=== PATIENT | female | born 1995 | race Caucasian/White ===

== ENCOUNTER 2017-01-26 19:34 | Day surgery (SDC) | payer OTHER ==
[2017-01-26 20:00] VITALS: BMI 36.2
--- NOTE | 2017-01-27 00:27 | PRG ---
OB ER ENCOUNTER DATE OF SERVICE: 01/26/2017 PRIMARY OB: Ms. Chloé Barnes, Certified Nurse Scarf Gluer. CHIEF COMPLAINT: Decreased movement. HISTORY OF PRESENT ILLNESS: The patient is a 21-year-old female G1, P0 with an intrauterine pregnan cy at 38 weeks, who is presenting to Labor and Delivery today with complaints that her baby has not been moving as much as usual today. She does admit that upon arrival, the baby has been moving more . She denies any labor. She denies contractions, vaginal bleeding, leakage of fluid. She denies a ny recent illness, fever, fall, headache, chest pain, shortness of breath, any significant nausea, v omiting, diarrhea, or constipation, any hip problems or knee problems or muscle weakness. PAST MEDICAL HISTORY: Significant with ankylosing spondylitis. PAST SURGICAL HISTORY: Negative. SOCIAL HISTORY: Denies drug, alcohol, or tobacco use. ALLERGIES: LYRICA. MEDICATIONS: vitamins, folic acid which has been discontinued since November. OB LABS: RPR is nonreactive. HIV is nonreactive. Blood type is A positive, antibody screen is neg ative. HIV is nonreactive. Hepatitis B surface antigen is nonreactive. She is rubella immune. RP R is nonreactive. Her one hour Glucola is 89. She is GBS positive. Third trimester HIV is nonreac tive. Third trimester RPR is nonreactive. PHYSICAL EXAMINATION: VITAL SIGNS: Blood pressure is 133/72, heart rate of 65, respiratory rate of 18, temperature 98.5. GENERAL: The patient is alert and oriented, and cooperative and pleasant to interact with. HEENT: Head is normocephalic, atraumatic. LUNGS: Clear to auscultation bilaterally. HEART: Regular rate and rhythm. ABDOMEN: Soft, nontender and gravid. EXTREMITIES: Nontender, nonedematous. CERVICAL EXAM: Per nursing staff and is closed, thick and high. heart tracing performed for decreased movement over 1 hour and triggered by Dr. Lynne. Baseline is in the 140s with moderate long-term variability, positive accelerations, no decelerati ons. She has contractions on the monitor, not felt by her. ASSESSMENT AND PLAN: The patient is a 21-year-old G1, P0 female who has an intrauterine a t 38 weeks who presented with decreased movement. She has a reactive NST and category 1 bjorn ng. She is GBS positive. The patient has been given term labor precautions. She has an appointmen t with Ms. Chloé Barnes later this week.
== END 2017-01-26 21:00 | disposition home or self-care (01) ==
LOC: L&D/OP 19:34
PROVIDERS: ATTEND Advanced Practice Midwife
DX: O36.8130 Decreased fetal movements, third trimester, not applicable or unspecified (principal); O99.89 Other specified diseases and conditions complicating pregnancy, childbirth and the puerperium; M45.9 Ankylosing spondylitis of unspecified sites in spine; Z88.8 Allergy status to other drugs, medicaments and biological substances; Z79.899 Other long term (current) drug therapy; Z3A.38 38 weeks gestation of pregnancy

== ENCOUNTER 2017-02-03 16:57 | Day surgery (SDC) | payer OTHER ==
[2017-02-03 17:49] VITALS: BMI 37.3
[2017-02-03 18:31] LABS: #Eosinphils 0.1 thou/uL (0.0-0.7); #Lymphocytes 2.5 thou/uL (1.20-3.40); #Neutrophils 6.8 thou/uL (1.40-6.50); %Basophils 0.3 % (0.0-1.0); %Eosinophils 0.7 % (0.0-10.0); %Lymphocytes 24.3 % (28.0-48.0); %Monocytes 9.8 % (0.0-4.0); Hematocrit 34.2 % (36.0-47.0); Mean Platelet Volume 9.1 fL (7.4-10.4); Red Blood Cell (RBC) Count 3.86 mill/uL (4.00-5.20); White Blood Cell (WBC) Count 10.4 thou/uL (4.8-10.8)
[2017-02-03 18:56] LABS: ALT (SGPT) 8 U/L (8-55); AST (SGOT) 13 U/L (5-34); Alkaline Phosphatase 99 U/L (40-150); Anion Gap 13 mmol/L (10-20); BUN (Urea Nitrogen) 6 mg/dL (7.0-18.7); Bilirubin, Total 0.4 mg/dL (0.2-1.2); Calc. Creatinine Clearance 236 mL/min (70-130); Calcium 9.2 mg/dL (7.8-10.44); Carbon Dioxide 21 mmol/L (22-29); Chloride 109 mmol/L (98-107); Estimated GFR-MDRD Greater than 90; Globulin 3.1 g/dL (2.4-3.5); Protein, Total 6.6 g/dL (6.0-8.3)
--- NOTE | 2017-02-04 00:27 | PRG ---
DATE OF PROCEDURE: 02/03/2017 TIME OF SERVICE: 2030 hours. PRESENTING COMPLAINT: The patient referred over by nurse aviation safety officer for elevated blood pressure at 39 w eeks. HISTORY OF PRESENT ILLNESS: Ms. Kelley is a 21-year-old 1, para 0 at 39-1/2 weeks' gestation, who was noted at [facility] blood pressures of 146/84, 140/88. She denied headach e or blurred vision. She was sent over for further evaluation of blood pressures. She denies chroni c hypertension. She has had an uncomplicated . The onset of care at 15 weeks' gestation, b lood type A positive, antibody negative, Pap negative, rubella immune, VDRL nonreactive, hepatitis B, GC chlamydia negative, group B strep negative. PAST MEDICAL HISTORY: Ankylosing spondylitis. PAST SURGICAL HISTORY: None. ALLERGIES: Denies. MEDICATIONS: vitamins. SOCIAL HISTORY: Denies tobacco, alcohol, IV drug abuse. FAMILY HISTORY: Noncontributory. REVIEW OF SYSTEMS: Noncontributory. PHYSICAL EXAMINATION: VITAL SIGNS: Temperature 98.4, blood pressure 136/83 on presentation. The patient had one blood pre ssure upon initial presentation of 150/86; however, subsequent blood pressures over several hours of observation were 120s-130s over 70s-80s. HEENT: Within normal limits. LUNGS: Clear to auscultation bilaterally. HEART: Regular rate and rhythm. ABDOMEN: Soft and nontender. Fundal height 38 cm. FHTs 140s. PELVIC: Vulva without lesions. Vaginal exam deferred. The patient was reported to be fingertip in the office. EXTREMITIES: Trace edema. 1+ DTRs. LABORATORY STUDIES: Hematocrit is 34%, platelet count is 208, normal white count. Creatinine 0.61. ALT and AST within normal limits. Urine dip in the office was negative. Rgolwfo-bc-whpkcjujrs rati o was unmeasurable due to low protein in the hospital. IMPRESSION: Term unfavorable cervix. No evidence of preeclampsia. PLAN: The patient was given ER precautions. Discharge home to follow up with Chloé Barnes, nurse aviation safety officer, next week.
== END 2017-02-03 20:40 | disposition home or self-care (01) ==
LOC: L&D/OP 16:57
PROVIDERS: ATTEND Advanced Practice Midwife
DX: O99.89 Other specified diseases and conditions complicating pregnancy, childbirth and the puerperium (principal); R03.0 Elevated blood-pressure reading, without diagnosis of hypertension; M45.9 Ankylosing spondylitis of unspecified sites in spine; Z3A.39 39 weeks gestation of pregnancy; Z79.899 Other long term (current) drug therapy; Z88.8 Allergy status to other drugs, medicaments and biological substances
CPT/HCPCS: 80053; 82570; 84156; 85025

== ENCOUNTER 2017-02-10 19:33 | Inpatient (IN) | payer OTHER ==
[2017-02-10 20:03] VITALS: BMI 35.7
--- NOTE | 2017-02-10 20:25 | PDOC.EVN ---
Event Note - Event Note Event Note: 02/10/2017 @ 2019: Triage note: Patient here oin triage as a patient of Sherice Stephenson. Reason for visit: states elevated BPs at home. HPI: 21 yo Gi at 40 weeks 2 days here for "high blood pressures at home". Her GM took her BPs at home and they were 150/90s by her report. States headache on/ off but no visual changes or RUQ pain. HX of akylosing spondyltis. Was in L&D last week for same eval with normal CMP. Review of symptoms: complete ROS done and as per HPI. All: LYRICA Surg: left knee scope, right arm fixation Physical Exam: 126/76, 125/76 NAD Abd soft nt No ROM No VB Cervix pending CMP ordered Monitors: NST reactive at 130s, low amplitute irreg CTXs on toco. Assessment: G1 at 40 weeks 2 days with no evidence high BPs here but still under obs. NST reactive. Plan: 1. NST 2. CMP 3. Cervix check 4. Serial BPs for now
[2017-02-10 21:26] LABS: ALT (SGPT) 8 U/L (8-55); AST (SGOT) 14 U/L (5-34); Alkaline Phosphatase 98 U/L (40-150); Anion Gap 11 mmol/L (10-20); BUN (Urea Nitrogen) 8 mg/dL (7.0-18.7); Bilirubin, Total 0.3 mg/dL (0.2-1.2); Calc. Creatinine Clearance 219 mL/min (70-130); Calcium 9.1 mg/dL (7.8-10.44); Carbon Dioxide 23 mmol/L (22-29); Chloride 108 mmol/L (98-107); Estimated GFR-MDRD Greater than 90; Globulin 3.4 g/dL (2.4-3.5); Protein, Total 6.7 g/dL (6.0-8.3)
--- NOTE | 2017-02-10 21:31 | PDOC.EVN ---
Event Note - Event Note Event Note: 2129: BP with one 140 systolic value. Otherwisw well. CMP normal. Cx 1cm. We will have her recheck her BP tomorrow AM at her provider's office for follow up.
--- NOTE | 2017-02-10 21:47 | PDOC.EVN ---
Event Note - Event Note Event Note: 02/10/2017 2145: Patient case discussed with Sherice Barnes. [address] Due to distance of travel and history of questionable BPs...we may watch tonight and offer AM cytotec at 0600. No need for monitoring now until AM meds given. CX / currently.
--- NOTE | 2017-02-10 21:50 | PDOC.LDHP ---
Labor and Delivery H&P HPI: Please see other event note from this evening as the working H&P. 21 yo G1 with ankylosing spondylitis with high home BP elevations. Due to living 1.5 hours away, we will keep in L&D tonight with AM trial of cytotec. Indication for induction: lives a distance away, full term , mild gestational hypertension. Current gestational age (weeks): 40 (2) Dating criteria: last menstrual period Grav: 1 Current complications: other (ankylosing spondylitis) Abnormal US findings: No Current medications: none Previous surgical history: other (knww surgery, arm surgery.) Allergies/Adverse Reactions: Allergies Allergy/AdvReac Type Severity Reaction Status Date / Time pregabalin [From Lyrica] Allergy Severe Verified 01/26/17 20:00 - Physical Exam Abnormal vital signs: 140/70 General: NAD Lungs: CTAB Extremeties: trace edema FHT: category 1 [place] contractions every: irregular - Vaginal Exam cm dilated: 1 Effacement: 25% Station: -2 - Assessment L&D Assessment: elective induction at term (Borderline BPs ( normal CMP)) - Plan Plan: admit to L&D, cervical ripening (in AM (cytotec)), informed consent obtained
[2017-02-10] MEDS ORDERED: Acetaminophen/Codeine 30-300mg Tablet PO PRN ×2 (21:52)
[2017-02-10] MEDS ORDERED: Lidocaine 1% (PF) 30 ML VIAL SC PRN (21:52)
[2017-02-10] MEDS ORDERED: Ibuprofen 800 MG TAB PO PRN (21:52)
[2017-02-10] MEDS ORDERED: Promethazine HCl 25 MG/ML VIAL IM PRN (21:52)
[2017-02-10] MEDS ORDERED: LR / Pitocin 40 units/1000 ml 1,000 ML IV PRN (21:52)
[2017-02-10] MEDS ORDERED: Ondansetron HCl/PF 4 MG/2 ML Vial IVP PRN (21:52)
--- NOTE | 2017-02-10 21:57 | PDOC.EVN ---
Event Note - Event Note Event Note: 2149: Patient admitted. Scheduled for 399 cytotec 25 mcg Q3 hrs. Q&A with patient done. BPs Q4 hours. Sherice Light to see patient in AM
[2017-02-10] MEDS ORDERED: Penicillin G Potassium 5 MILL.UNITS in Sodium Chloride 0.9% 100 ML IVPB SCH (22:00)
[2017-02-10 23:58] LABS: Hematocrit 32.1 % (36.0-47.0); Mean Platelet Volume 9.3 fL (7.4-10.4); Red Blood Cell (RBC) Count 3.59 mill/uL (4.00-5.20); White Blood Cell (WBC) Count 8.7 thou/uL (4.8-10.8)
[2017-02-11] MEDS ORDERED: Misoprostol 100 MCG TAB VAG SCH ×2 (04:00→05:00)
[2017-02-11] MEDS ORDERED: Penicillin G Potassium 5 MILL.UNITS VIAL ONE (05:22)
[2017-02-11] MEDS: Lactated Ringer's 1,000 ML IV SCH ×4 (05:27→22:55)
[2017-02-11] MEDS: Misoprostol 100 MCG TAB PO SCH ×4 (05:27→14:44)
[2017-02-11] MEDS: Penicillin G 2.5 MILL.units 2.5 MILL.UNITS in Premix Bag 1 BAG IVPB SCH ×5 (08:39→21:27)
--- NOTE | 2017-02-11 11:47 | PDOC.LDPN ---
Labor & Delivery Progress Note - Subjective Subjective: comfortable (feelign ctx) - Objective Vital signs reviewed and normal: yes General: NAD, resting Uterine fundus: non tender Dilation: 2 Effacement: 50% Station: -2 FHT: category 1 (140 baseline, +accels, no decels. ) [place] contractions every: q5-6mins Other exam findings: Clear fluid - Assessment (1) SROM (spontaneous rupture of membranes) Code(s): [id number] - Current Visit: Yes Status: Acute Plan: continue plan of care (continue cytoec for cervical ripening. )
[2017-02-11] MEDS ORDERED: Acetaminophen 500 MG TAB PO SCH (14:00)
[2017-02-11] MEDS ORDERED: LR 500 ML/Oxytocin 10 units 500 ML IV SCH (18:30)
[2017-02-11] MEDS ORDERED: Fentanyl 4 mcg/Marc 0.1% Cadd 100 ML ONE (22:28)
[2017-02-11] MEDS: Fentanyl 4mcg/Marcaine 0.1% Cassette 100 ML EPIDURAL SCH (23:07)
[2017-02-11] MEDS ORDERED: Naloxone HCl 0.4 mg/ml Vial IVP PRN ×2 (23:08)
[2017-02-11] MEDS ORDERED: Acetaminophen 325 MG TAB PO PRN (23:08)
[2017-02-11] MEDS ORDERED: ePHEDrine/0.9% NaCl/PF SYRINGE 50 mg/10 ml SLOW IVP PRN (23:08)
[2017-02-11] MEDS ORDERED: Lactated Ringer's 500 ML IV PRN (23:08)
[2017-02-11] MEDS ORDERED: Eucerin (Mineral Oil/Petrolatum,White) 30 gm Jar TOP PRN (23:08)
[2017-02-11] MEDS ORDERED: Communication Order-Pharmacy FS SCH (23:15)
[2017-02-12] MEDS: Penicillin G 2.5 MILL.units 2.5 MILL.UNITS in Premix Bag 1 BAG IVPB SCH ×3 (01:30→14:41)
[2017-02-12] MEDS: Misoprostol 100 MCG TAB PO SCH (02:08)
[2017-02-12] MEDS: Lactated Ringer's 1,000 ML IV SCH (05:17)
[2017-02-12] MEDS: Fentanyl 4mcg/Marcaine 0.1% Cassette 100 ML EPIDURAL SCH (05:18)
[2017-02-12] MEDS ORDERED: Lidocaine 1% (PF) 30 ML VIAL ONE (06:34)
[2017-02-12] MEDS ORDERED: LR / Pitocin 40 units/1000 ml 1,000 ML ONE ×2 (06:34→09:53)
[2017-02-12 07:29] LABS: CO2 Tension (PaCO2) 80.7 mmHg (44.0-56.0)
--- NOTE | 2017-02-12 07:53 | PDOC.OPDEL ---
OB Operative/Delivery Note Delivery Dr/Surgeon: Molly Pre-Delivery Diagnosis: other (PROM with cytotec for cervical ripening followed by pitocin augmentation) Procedure/Post Delivery Dx: spontaneous vaginal delivery Weeks gestation: 40 Anesthesia: epidural - Findings A Sex: male Weight: 8 lb - 1 min: 7 - 5 min: 9 - Additional Findings/Plan Placenta delivered: spontaneous Repaired Obstetrical Laceration: 2nd degree (reparied with 2.[address]) findings: other Estimated blood loss: 300ml Compilations/Other Findings: nuchal cord X 1 FHTs in the 80s with spontaneous return. 70 prior to delivery. Post delivery plan: routine recovery
[2017-02-12] MEDS ORDERED: Bisacodyl 10 MG SUPP PR PRN (11:29)
[2017-02-12] MEDS ORDERED: Measles/Mumps/Rubella 10 MCG/0.5 ML VIAL SC ONE (11:29)
[2017-02-12] MEDS ORDERED: Benzocaine/Menthol 20-0.5% 60 ML CAN TOP PRN (11:29)
[2017-02-12] MEDS ORDERED: LR / Pitocin 40 units/1000 ml 1,000 ML IV SCH (11:29)
[2017-02-12] MEDS ORDERED: Lanolin Ointment 7 GM TUBE TOP PRN (11:29)
[2017-02-12] MEDS ORDERED: HYDROcodone/Acetaminophen 5/325 mg Tablet PO PRN ×2 (11:29)
[2017-02-12] MEDS ORDERED: Milk Of Magnesia 30 ML UDCUP PO PRN (11:29)
[2017-02-12] MEDS ORDERED: Ondansetron HCl/PF 4 MG/2 ML Vial IVP PRN (11:29)
[2017-02-12] MEDS ORDERED: Adacel (T-DAP) 0.5 ML VIAL IM ONE (11:29)
[2017-02-12] MEDS: Ferrous Sulfate 325 MG TAB PO SCH ×2 (11:41→15:07)
[2017-02-12] MEDS: Prenatal Vitamin 1 TAB PO SCH (11:41)
[2017-02-12] MEDS: Docusate (Surfak) 240 MG CAP PO SCH ×2 (11:41→21:51)
[2017-02-12] MEDS ORDERED: Misoprostol 200 MCG TAB VAG SCH (11:45)
[2017-02-12] MEDS: Ibuprofen 800 MG TAB PO SCH ×2 (14:40→21:51)
[2017-02-13] MEDS: Ibuprofen 800 MG TAB PO SCH ×3 (05:27→21:38)
[2017-02-13 06:24] LABS: Hematocrit 25.7 % (36.0-47.0); Red Blood Cell (RBC) Count 2.83 mill/uL (4.00-5.20)
[2017-02-13] MEDS: Prenatal Vitamin 1 TAB PO SCH (09:37)
[2017-02-13] MEDS: Docusate (Surfak) 240 MG CAP PO SCH ×2 (09:37→21:38)
[2017-02-13] MEDS: Ferrous Sulfate 325 MG TAB PO SCH ×2 (09:38→19:07)
--- NOTE | 2017-02-13 09:43 | PDOC.PP ---
Post Progress Note Post Day #: 1 Subjective: having difficultly feeding the baby. feeling well, passing gas, bleeding is okay, pain is better than she expected. PO intake tolerated: yes Flatus: yes Ambulation: yes Vital Signs (12 hours) Temp Pulse Resp BP 02/13/17 08:20 97.7 F 63 20 02/13/17 08:00 97.7 F 63 20 113/57 L 02/13/17 03:35 97.6 F 71 18 115/58 L 02/12/17 22:55 97.7 F 77 18 132/59 L Weight Weight 215 lb - Physical Examination General: NAD Cardiovascular: no m/r/g Respiratory: clear to auscultation bilaterally Abdominal: + bowel sounds, lochia (moderate, rubra) Fundus firm & at: u-1 Extremities: negative homans (B) Perineum: intact Neurological: no gross focal deficits Psychiatric: A&Ox3 Result Diagrams: 02/13/17 05:34 02/10/17 20:40 Additional Labs: Post Labs Hep Bs Antigen Non-Reactive S/CO (NonReactive) 02/10/17 23:30 (1) SROM (spontaneous rupture of membranes) Code(s): [id number] - Status: Acute - Assessment/Plan A: G1 now P1 SP over 2nd degree lac. Nml day #1 exam. P: discharge home if infant is discharged f/up with help f/up 6 week with Jenna Barnes
[2017-02-13 21:03] VITALS: BP 116/60; TEMP 98.3
== END 2017-02-13 22:03 | disposition home or self-care (01) | DRG 775 ==
LOC: L&D/OP 19:33 → L&D 23:40 → 3SE 02-12 09:54 → 3SW 02-12 10:18
PROVIDERS: ADMIT Obstetrics & Gynecology; ATTEND Obstetrics & Gynecology
PROC: 10E0XZZ Delivery of Products of Conception, External Approach (ICD-10-PCS; principal; 2017-02-12)
PROC: 0KQM0ZZ Repair Perineum Muscle, Open Approach (ICD-10-PCS; 2017-02-12)
PROC: 4A0HXCZ Measurement of Products of Conception, Cardiac Rate, External Approach (ICD-10-PCS; 2017-02-12)
PROC: 3E0P7VZ Introduction of Hormone into Female Reproductive, Via Natural or Artificial Opening (ICD-10-PCS; 2017-02-12)
DX: O13.4 Gestational [pregnancy-induced] hypertension without significant proteinuria, complicating childbirth (principal); O63.1 Prolonged second stage (of labor); O99.824 Streptococcus B carrier state complicating childbirth; O75.89 Other specified complications of labor and delivery; O70.1 Second degree perineal laceration during delivery; M45.9 Ankylosing spondylitis of unspecified sites in spine; Z37.0 Single live birth; Z3A.40 40 weeks gestation of pregnancy
CPT/HCPCS: 36415; 80053; 82805; 85027; 86780; 87340; 87389; J0595; J2001; J2540; J2550; J7050; J7120